=== PATIENT | female | born 1975 | race Caucasian/White ===

== ENCOUNTER → 2018-09-22 15:37 | Outpatient (CLI) | payer BC, SELFPAY ==
--- NOTE | 2018-09-22 15:41 | MM_ITS ---
MM Dig screening mamm BI w/CAD CAD Screening COMPARISON: Digital mammograms with CAD 05/20/2016 and 11/12/2015 INDICATION: There is no personal or family history of breast cancer TECHNIQUE: Standard CC and MLO images were obtained. R2 CAD reviewed. FINDINGS: Moderate diffuse fibro glandular densities are seen throughout both breasts. Previously noted cystic lesions left breast have either decompressed or has been aspirated and not definitely seen. There is a stable tiny nodular density near the axillary tail left breast. There is no suspicious lesion and there are no suspicious microcalcifications. There are small nodes in both axilla. IMPRESSION: Fibrofatty parenchyma no suspicious lesion seen BI-RADS Category: 2 Benign Finding(s) RECOMMENDED FOLLOW-UP: 1YR - 1 YEAR FOLLOW-UP (A letter has been sent to the patient regarding results of the study.)
== END ==
PROVIDERS: PCP Internal Medicine Adolescent Medicine; Visit Provider Obstetrics & Gynecology Gynecology
DX: Z12.31 Encounter for screening mammogram for malignant neoplasm of breast (principal)
CPT/HCPCS: 77067

== ENCOUNTER → 2019-10-21 15:53 | Outpatient (CLI) | payer BC, SELFPAY ==
--- NOTE | 2019-10-21 16:11 | XR_ITS ---
PROCEDURE: XR HAND LT MIN 3V CLINICAL INDICATION: ARTHRITIS Left hand pain worse in the 5th digit COMPARISON: No exams were available for comparison FINDINGS: No fracture or dislocation. No lytic or blastic change. There is normal mineralization. The joint spaces are well-preserved. No significant degenerative/arthritic changes. No erosive changes evident. Other findings:None. IMPRESSION: No acute findings. Dictated by: Keaton Khan MD 10/21/2019 17:36 Electronically signed by Keaton Khan MD in [place] 10/21/2019 17:37
--- NOTE | 2019-10-21 16:11 | XR_ITS ---
PROCEDURE: XR HAND RT MIN 3V CLINICAL INDICATION: ARRTHRITIS Pain COMPARISON: No exams were available for comparison FINDINGS: No fracture or dislocation. No lytic or blastic change. There is normal mineralization. The joint spaces are well-preserved. No significant degenerative/arthritic changes. No erosive changes evident. Other findings:There is a small subarticular cyst involving the distal aspect of the ulna. No bony erosive change is evident. The joint spaces are well preserved IMPRESSION: Negative right Dictated by: Keaton Khan MD 10/21/2019 17:35 Electronically signed by Keaton Khan MD in [place] 10/21/2019 17:35
[2019-10-21 16:18] LABS: Basophils # 0.1 K/mm3 (0-0.2); Basophils % 0.9 % (0.1-2.0); Eosinophils # 0.3 K/mm3 (0.0-0.4); Eosinophils % 5.2 % (0.1-12.0); Hematocrit 38.3 % (37.0-47.0); Hemoglobin 12.4 g/dL (12.2-16.2); Lymphocytes # 2.1 K/mm3 (0.7-4.5); Lymphocytes % 32.6 % (10-50); Mean Corpuscular HGB Conc 32.5 g/dL (31.8-35.4); Mean Corpuscular Hemoglobin 29.9 pg (27.0-31.2); Mean Corpuscular Volume 92.2 fl (81-99); Mean Platelet Volume 7.8 fl (7.4-10.4); Monocytes # 0.3 K/mm3 (0.1-1.0); Monocytes % 4.4 % (1.7-9.3); Neutrophils # 3.6 K/mm3 (1.8-7.8); Neutrophils % 56.9 % (37.0-80.0); Platelet Count 364 K/mm3 (142-424); Red Blood Count 4.15 M/mm3 (4.20-5.40); Red Cell Distribution Width 12.9 % (11.5-17.5); White Blood Count 6.4 K/mm3 (4.8-10.8)
[2019-10-21 17:03] LABS: Alanine Aminotransferase 23 U/L (12-78); Albumin Level 3.7 gm/dL (3.4-5.0); Albumin/Globulin Ratio 1.3 (1.1-1.8); Alkaline Phosphatase 51 U/L (46-116); Anion Gap 13.9 mEq/L (5-15); Aspartate Amino Transferase 14 U/L (15-37); Bilirubin,Total 0.2 mg/dL (0.2-1.0); Blood Urea Nitrogen 16 mg/dL (7-18); Calcium 8.6 mg/dL (8.5-10.1); Carbon Dioxide 27 mmol/L (21.0-32.0); Chloride 104 mmol/L (98-107); Creatinine,Serum 0.85 mg/dL (0.55-1.02); Estimated Glomerular Filt Rate 73 ml/min (>60); GFR (African American) 88 ML/MIN (>60); Globulin 2.8 gm/dl (1.3-3.2); Glucose 91 mg/dL (74-106); Potassium 3.9 mmoL/L (3.5-5.1); Sodium 141 mmol/L (136-145); Total Protein,Serum 6.5 gm/dL (6.4-8.2); Uric Acid 4.5 mg/dL (2.6-7.2)
[2019-10-21 19:49] LABS: Erythrocyte Sedimentation Rate 18 mm/hr (0-20)
== END ==
PROVIDERS: Visit Provider Internal Medicine Adolescent Medicine
DX: M19.042 Primary osteoarthritis, left hand (principal)
CPT/HCPCS: 36415; 73130; 80053; 84550; 85025; 85651; 86140

== ENCOUNTER → 2020-04-25 09:54 | Outpatient (CLI) | payer BC, SELFPAY ==
--- NOTE | 2020-04-25 09:59 | MM_ITS ---
PROCEDURE: MM DIG SCREENING MAMM BI W/CAD Digital Breast Tomosynthesis Included CLINICAL INDICATION: SCREENING There is no personal or family history of breast cancer. COMPARISON: DMDBAV DIG MAMM-DX AYNI W ADD VIEWS from 11/12/2015 DMDB DIG MAMM-DX YANI from 05/20/2016 [facility] MM Dig screening mamm BI w/CAD from 09/22/2018 TECHNIQUE: Standard CC and MLO images and 3D Tomosynthesis was obtained. R2 CAD reviewed. FINDINGS: Moderate scattered fibroglandular densities are seen throughout both breast and the findings are fairly symmetrical bilaterally. There is a stable benign-appearing nodular density near the axillary tail left breast. There is a subtle density central portion of the left breast at the site of the previous large cystic structure seen on previous mammograms. There is no suspicious lesion and no suspicious microcalcifications. IMPRESSION: Moderate diffuse breast density with no suspicious lesions seen BI-RAD Category: 2 Benign Finding(s) FOLLOW-UP: 1YR 1 Year Follow-up (A letter has been sent to the patient regarding results of the study.) Dictated by: Dr. Dustin Walter MD 04/27/2020 10:[address] Dustin Walter MD in [place] 04/27/2020 10:46
== END ==
PROVIDERS: PCP Internal Medicine Adolescent Medicine; Visit Provider Nurse Practitioner Family
DX: Z12.31 Encounter for screening mammogram for malignant neoplasm of breast (principal)
CPT/HCPCS: 77063; 77067

== ENCOUNTER → 2021-05-01 08:52 | Outpatient (CLI) | payer BC, SELFPAY ==
--- NOTE | 2021-05-01 08:55 | MM_ITS ---
PROCEDURE INFORMATION: Exam: MG Screening 3D Mammography Exam date and time: 05/01/2021 8:55 AM Age: 46 years old Clinical indication: Encounter for screening mammogram for malignant neoplasm of breast TECHNIQUE: Imaging protocol: Screening tomosynthesis and 2D mammography including computer-aided detection (CAD) when performed. COMPARISON: 1. MG MM DIG SCREENING MAMM BI W/CAD 04/25/2020 10:03 AM 2. MG [facility] MM Dig screening mamm BI w/CAD 09/22/2018 4:00 PM FINDINGS: MAMMOGRAPHY: Breast composition: The breast tissue is composed of scattered areas of fibroglandular density. Mass: None. Architectural distortion: None. Calcifications: No suspicious calcifications. Asymmetric density: None. Skin thickening: None. Axillary adenopathy: None. IMPRESSION: No mammographic evidence of malignancy. Annual screening is recommended unless otherwise clinically indicated. ASSESSMENT: BI-RADS Category 1: Negative
== END ==
PROVIDERS: PCP Internal Medicine Adolescent Medicine; Visit Provider Nurse Practitioner Family
DX: Z12.31 Encounter for screening mammogram for malignant neoplasm of breast (principal)
CPT/HCPCS: 77063; 77067

== ENCOUNTER → 2022-05-07 15:17 | Outpatient (CLI) | payer BC, SELFPAY ==
--- NOTE | 2022-05-07 15:21 | MM_ITS ---
PROCEDURE INFORMATION: Exam: MG Bilateral Screening 3D Mammography Exam date and time: 05/07/2022 3:18 PM Age: 47 years old Clinical indication: Screening examination TECHNIQUE: Imaging protocol: Bilateral Screening tomosynthesis and 2D mammography including computer-aided detection (CAD) when performed. COMPARISON: 1. MG MM DIG SCREENING MAMM BI W/CAD 05/01/2021 8:54 AM 2. MG MM DIG SCREENING MAMM BI W/CAD 04/25/2020 10:03 AM FINDINGS: MAMMOGRAPHY: Breast composition: There are scattered areas of fibroglandular density. Mass: Three round masses are noted in the middle third of the left upper outer quadrant. They measure 1.1, 0.9, and 0.7 cm respectively. These are likely on the basis of underlying cystic change Architectural distortion: None. Calcifications: No suspicious calcifications. Asymmetric density: None. Skin thickening: None. Axillary adenopathy: None. IMPRESSION: Patient to be recalled for left breast ultrasound for further evaluation of 3 probably benign left breast masses ASSESSMENT: BI-RADS Category 0: Incomplete- Need Additional Imaging Evaluation and/or Prior Mammograms for Comparison
== END ==
PROVIDERS: PCP Internal Medicine Adolescent Medicine; Visit Provider Internal Medicine Adolescent Medicine
DX: Z12.31 Encounter for screening mammogram for malignant neoplasm of breast (principal)
CPT/HCPCS: 77063; 77067

== ENCOUNTER → 2022-05-26 11:00 | Outpatient (CLI) | payer BC, SELFPAY | PROVIDERS: PCP Internal Medicine Adolescent Medicine; Visit Provider Internal Medicine | DX: Z01.812 Encounter for preprocedural laboratory examination (principal); Z20.822 Contact with and (suspected) exposure to COVID-19; Z12.11 Encounter for screening for malignant neoplasm of colon | CPT/HCPCS: C9803; U0003; U0005 ==

== ENCOUNTER → 2022-05-27 14:08 | Outpatient (CLI) | payer BC, SELFPAY ==
--- NOTE | 2022-05-27 14:13 | US_ITS ---
PROCEDURE INFORMATION: Exam: US Left Breast, Complete Exam date and time: 05/27/2022 2:31 PM Age: 47 years old Clinical indication: Patient recalled for further evaluation of left breast masses TECHNIQUE: Imaging protocol: Complete ultrasound of all four quadrants of the Left breast and the retroareolar regions, including ultrasound of the axilla when performed. COMPARISON: BL US BREAST-LT COMPLETE W/AXILLA 05/20/2016 2:05 PM FINDINGS: Breast: Sonographic images of the left breast including the retroareolar region, all 4 quadrants and the axilla demonstrates a questionable solid mass versus debris-filled cyst in the 12 o'clock axis 3 cm from the nipple measuring 0.6 x 0.6 x 0.5 cm. Also noted in the 12 o'clock axis are several cysts measuring up to 1.1 cm. These as well as the deep 1 o'clock axis cyst correspond to the masses on mammography. In the deep left 1 o'clock axis 4 cm from the nipple is a 1.3 cm cyst . Probable debris-filled 0.8 cm cyst in the deep 11 o'clock axis 3 cm from the nipple. Cursors were placed over normal fibroglandular structures in the 7 o'clock axis 3 cm from the nipple No architectural distortion or acoustical shadowing. No skin thickening or axillary adenopathy. IMPRESSION: Masses on screening mammography correspond to underlying cystic change sonographically. There are 2 hypoechoic masses likely reflecting debris-filled cysts in the deep 11 o'clock axis 3 cm from the nipple as well as in the 12 o'clock axis 3 cm from the nipple. A six-month follow-up targeted left breast ultrasound is recommended to ensure stability over time ASSESSMENT: BI-RADS Category 3: Probably benign
== END ==
PROVIDERS: PCP Nurse Practitioner Family; Visit Provider Nurse Practitioner Family
DX: R92.8 Other abnormal and inconclusive findings on diagnostic imaging of breast (principal)
CPT/HCPCS: 76641

== ENCOUNTER 2022-05-28 09:23 | Day surgery (SDC) | payer BC, SELFPAY ==
[2022-05-26 13:33] VITALS: BMI 27.4
[2022-05-28] VITALS (7 sets, daily range): BP systolic 96–124; BP diastolic 59–76; PULSE 58–74; RESP 17–18; TEMP 36.1–37.2; O2SAT 92–98
[2022-05-28 10:17] LABS: Urine Pregnancy, HCG Qual. Negative (Negative)
--- NOTE | 2022-05-28 10:19 | HMH.ANESCL ---
[facility] Anesthesia Checklist - Patient Identification Patient Identification: Arm Band - Structural Data Admitted From: Home Planned Operative Procedure/s: Colonoscopy Consent for Planned Operative Procedure(s) Verified: Yes - NPO Status Verified Time NPO: 00:00 - Airway Assessment C-Spine Mobility Assessed: Yes TMJ Mobility Assessed: Yes Dentition: Good Dentition - Neurological Assessment Level of Consciousness: Awake Hx Seizures: No Numbness or tingling in extremities: No - Anesthesia Plan Anesthesia Risk discussed: Yes Anesthesia Plan: Verified ASA Class: I Anesthesia Type: MAC [facility] History I have reviewed the patient's past medical history: Yes Medical History: Reports:: Anxiety Denies:: Cancer, Diabetes Mellitus Type 1, Diabetes Mellitus Type 2, Internal Pacemaker, MRSA, Seizures *Have you ever received a pneumonia vaccine?: No *Have you received a flu vaccine this season?: Yes Anesthesia experience/problems:: None Other Surgeries: No: Pacemaker Amputation: No Fractures: No - *Social History Last grade of school completed: Advanced degree Smoking Status: Never smoker Alcohol Intake: never Substance Use Type: denies use *Occupational Status:: employed Housing: house Household Members: spouse *Travel in the last 8 weeks: Outside the [facility] Family Hx:: Diabetes
--- NOTE | 2022-05-28 11:11 | HMH.SCOPE ---
- Procedure: Date: 05/28/22 Patient Date of :: 1975 Procedure Performed:: Colonoscopy Indications:: Screening colonoscopy Performing Provider:: Martín Sr MD Referring Provider:: Jyoti Antunez APRN Sedation:: See RN notes Procedure:: After placing the patient in the left lateral decubitus position, the colonoscopy was gently inserted into the rectum and under direct visualization advanced to the cecum which was identified by transillumination in the right lower quadrant, identification of the ileocecal valve, appendiceal orifice, and cecal strap. Color, texture, mucosa, and anatomy of the colon were carefully examined with the scope. Findings:: Anal canal: normal Rectum: normal Sigmoid colon: Diverticulosis Descending colon: normal without polyps or inflammatory changes Splenic flexure: normal Transverse colon: normal without polyps or inflammatory changes Hepatic flexure: Diverticulosis Ascending colon: normal without polyps or inflammatory changes Cecum: normal Terminal ileum: not visualized Recommendations:: Higher fiber diet Repeat colonoscopy in 10 years or sooner if clinically indicated Complications:: None Estimated blood obtained (mL): 0
== END 2022-05-28 12:00 | disposition home or self-care (01) ==
LOC: OUTP 09:24
PROVIDERS: PCP Internal Medicine Adolescent Medicine; Visit Provider Internal Medicine
PROC: 0DJD8ZZ Inspection of Lower Intestinal Tract, Via Natural or Artificial Opening Endoscopic (ICD-10-PCS; CPT 45378; principal; 2022-05-28 10:30)
DX: Z12.11 Encounter for screening for malignant neoplasm of colon (principal); F41.9 Anxiety disorder, unspecified
CPT/HCPCS: 45378; 81025

== ENCOUNTER → 2023-08-18 10:12 | Outpatient (CLI) | payer BC, SELFPAY ==
--- NOTE | 2023-08-18 10:18 | US_ITS ---
PROCEDURE INFORMATION: Exam: US Left Breast, Complete Exam date and time: 08/18/2023 10:41 AM Age: 48 years old Clinical indication: Short-term radiographic follow-up for 2 left breast masses TECHNIQUE: Imaging protocol: Complete ultrasound of all four quadrants of the left breast and the retroareolar regions, including ultrasound of the axilla when performed. COMPARISON: US BREAST LT COMPLETE 05/27/2022 2:31 PM FINDINGS: Breast: Sonographic images of the left breast including the retroareolar region, all 4 quadrants and the axilla demonstrates a stable hypoechoic mass in the 12 o'clock axis 3 cm from the nipple measuring 0.6 x 0.7 x 0.5 cm in dimension, likely reflecting a debris-filled cyst. Sonographic images of the deep 11 o'clock axis 3 cm from the nipple demonstrates a stable hypoechoic mass also likely reflecting a debris-filled cyst measuring 0.8 x 1.0 x 0.7 cm. Few scattered simple cysts are noted measuring up to 1.3 cm in the retroareolar region.. No architectural distortion or acoustical shadowing. No skin thickening or axillary adenopathy. IMPRESSION: Two stable probably benign masses in the left breast compared to prior ultrasound dated 05/27/2022. A six-month follow-up targeted left breast ultrasound is recommended for continued close surveillance ASSESSMENT: BI-RADS Category 3: Probably benign
== END ==
LOC: RAD 10:13
PROVIDERS: PCP Internal Medicine Adolescent Medicine; Visit Provider Obstetrics & Gynecology Gynecology
DX: R92.8 Other abnormal and inconclusive findings on diagnostic imaging of breast (principal)
CPT/HCPCS: 76641

== ENCOUNTER 2024-02-01 12:59 | Outpatient (CLI) | payer BC, SELFPAY ==
--- NOTE | 2024-02-01 13:16 | XR_ITS ---
FINAL REPORT CLINICAL HISTORY: LEFT FOOT PAIN..no truama COMPARISON: None FINDINGS: LEFT FOOT: Three views of the left foot were obtained. There is no acute fracture or dislocation. There is mild flattening of the head of the second metatarsal, and mild chronic osteonecrosis cannot be excluded. Calcaneal spurs are present. There is no soft tissue abnormality. IMPRESSION: No acute bony abnormality. Mild flattening of the head of the second metatarsal, mild chronic osteonecrosis cannot be excluded. Reviewed, Interpreted and Dictated by Lavon Hernández III, MD Transcribed by Lynne Akbar Authenticated and [facility]
== END 2024-02-01 23:59 ==
LOC: RAD 12:59
PROVIDERS: PCP Nurse Practitioner Family; Visit Provider Nurse Practitioner Family
DX: M79.672 Pain in left foot (principal)
CPT/HCPCS: 73630

== ENCOUNTER 2024-02-18 12:51 | Outpatient (CLI) | payer BC, SELFPAY ==
--- NOTE | 2024-02-18 12:56 | MM_ITS ---
PROCEDURE INFORMATION: Exam: US Left Breast, Complete MG Bilateral Screening 3D Mammography Exam date and time: 02/18/2024 1:19 PM Age: 48 years old Clinical indication: Screening examination TECHNIQUE: Imaging protocol: Complete ultrasound of all four quadrants of the left breast and the retroareolar regions, including ultrasound of the axilla when performed. Bilateral Screening tomosynthesis and 2D mammography including computer-aided detection (CAD) when performed. COMPARISON: US BREAST LT COMPLETE 08/18/2023 10:41 AM FINDINGS: MAMMOGRAPHY: Breast composition: There are scattered areas of fibroglandular density. Mass: No new or suspicious masses. Architectural distortion: None. Calcifications: None. Asymmetric density: None. Skin thickening: None. Axillary adenopathy: None. ULTRASOUND: Left solid masses: None. Left cystic masses: Scattered simple and debris-filled cysts are noted throughout much of the left breast measuring up to 1.4 cm in the 12 o'clock retroareolar region.. Left architectural distortion: None. Left acoustical shadowing: None. Left skin thickening: None. Left axillary adenopathy: None. IMPRESSION: No mammographic or sonographic evidence of malignancy. Annual screening is recommended unless otherwise clinically indicated. ASSESSMENT: BI-RADS Category 2: Benign.
== END 2024-02-18 23:59 | disposition home or self-care (01) ==
LOC: RAD 12:51
PROVIDERS: PCP Nurse Practitioner Family; Visit Provider Obstetrics & Gynecology Gynecology
DX: Z12.31 Encounter for screening mammogram for malignant neoplasm of breast (principal); R92.8 Other abnormal and inconclusive findings on diagnostic imaging of breast
CPT/HCPCS: 76641; 77063; 77067

== ENCOUNTER 2025-06-01 10:10 | Outpatient (CLI) | payer BC, SELFPAY ==
--- NOTE | 2025-06-01 10:14 | MM_ITS ---
PROCEDURE INFORMATION: Exam: MG Bilateral Screening 3D Mammography Exam date and time: 06/01/2025 10:20 AM Age: 50 years old Clinical indication: Screening examination TECHNIQUE: Imaging protocol: Bilateral Screening tomosynthesis and 2D mammography including computer-aided detection (CAD) when performed. COMPARISON: 1. MG MM DIG SCREENING MAMM BI W/CAD 02/18/2024 1:37 PM 2. MG MM DIG SCREENING MAMM BI W/CAD 05/07/2022 3:18 PM FINDINGS: MAMMOGRAPHY: Breast composition: There are scattered areas of fibroglandular density. Mass: No suspicious masses. Architectural distortion: None. Calcifications: No suspicious calcifications. Asymmetric density: None. Skin thickening: None. Axillary adenopathy: None. IMPRESSION: No mammographic evidence of malignancy. Annual screening is recommended unless otherwise clinically indicated. ASSESSMENT: BI-RADS Category 1: Negative.
== END 2025-06-01 23:59 | disposition home or self-care (01) ==
LOC: RAD 10:10
PROVIDERS: PCP Internal Medicine Adolescent Medicine; Visit Provider Internal Medicine Adolescent Medicine
DX: Z12.31 Encounter for screening mammogram for malignant neoplasm of breast (principal); R92.323 Mammographic fibroglandular density, bilateral breasts
CPT/HCPCS: 77063; 77067